=== PATIENT | female | born 1985 | race Hispanic/Latino ===

== ENCOUNTER 2017-05-02 17:31 | Emergency (ER) | payer BC ==
[~2017-05-02] VITALS: Ht 162.6 cm; Wt 88.5 kg
[2017-05-02] MEDS ORDERED: LIDOCAINE HCL 1% LOCAL INJ 20 ML VIAL INJ ONE (18:00)
[2017-05-02] MEDS ORDERED: TETANUS/DIPHTHERIA TOX ADULT 0.5 ML SYR IM ONE (18:00)
[2017-05-02 18:42] VITALS: BP 120/68
== END 2017-05-02 18:50 | disposition home or self-care (01) ==
LOC: FSED 17:31
DX: S61.412A Laceration without foreign body of left hand, initial encounter (principal); W25.XXXA Contact with sharp glass, initial encounter; Y92.008 Other place in unspecified non-institutional (private) residence as the place of occurrence of the external cause
CPT/HCPCS: 12001; 73130; 90471; 90714; 99282; J2001

== ENCOUNTER 2019-12-22 01:25 | Emergency (ER) | payer BC ==
[~2019-12-22] VITALS: Ht 162.6 cm; Wt 120.2 kg
[2019-12-22] MEDS ORDERED: LIDOCAINE HCL 1% LOCAL INJ 20 ML VIAL INJ STA (01:42)
== END 2019-12-22 02:28 | disposition home or self-care (01) ==
LOC: FSED 01:39
DX: S61.210A Laceration without foreign body of right index finger without damage to nail, initial encounter (principal); W26.0XXA Contact with knife, initial encounter; J45.909 Unspecified asthma, uncomplicated
CPT/HCPCS: 99283

== ENCOUNTER 2020-03-28 10:45 | Emergency (ER) | payer BC ==
[~2020-03-28] VITALS: Ht 162.6 cm; Wt 113.4 kg
[2020-03-28] MEDS ORDERED: VENTOLIN HFA18 GM (11:07)
[2020-03-28] MEDS ORDERED: [UNRECOGNIZED DRUG - OTHER] (11:07)
[2020-03-28] MEDS ORDERED: METHYLPREDNISOLONE SOD SUCC 125 MG/2ML VIAL IV ONE (11:15)
[2020-03-28] MEDS ORDERED: ACETAMINOPHEN 325 MG TAB ONE (11:41)
[2020-03-28] MEDS ORDERED: METHYLPREDNISOLONE SOD SUCC 125 MG/2ML VIAL ONE (11:41)
[2020-03-28] MEDS ORDERED: ACETAMINOPHEN 325 MG TAB PO ONE (12:00)
[2020-03-28] MEDS ORDERED: SODIUM CHLORIDE 0.9% 500ML 500 ML ONE (12:43)
[2020-03-28] MEDS ORDERED: LEVOFLOXACIN 750MG/D5W 150ML 150 ML IV ONE (12:43)
[2020-03-28] MEDS ORDERED: ARNUITY ELLIP100 MCG (12:51)
[2020-03-28] MEDS ORDERED: IPRATROPIUM/ALBUTEROL SULFATE 4 GM INH INH SCH (13:00)
[2020-03-28] MEDS ORDERED: LEVOFLOXACIN 750MG/D5W 150ML 150 ML IV SCH (13:00)
[2020-03-28] MEDS ORDERED: SODIUM CHLORIDE 0.9% 500ML 500 ML IV ONE (13:00)
[2020-03-28 14:49] VITALS: BP 108/73
== END 2020-03-28 14:25 | disposition other institution (70) ==
LOC: FSED 11:01
DX: U07.1 COVID-19 (principal); J18.9 Pneumonia, unspecified organism; R09.02 Hypoxemia; R06.02 Shortness of breath; J45.901 Unspecified asthma with (acute) exacerbation
CPT/HCPCS: 71045; 80048; 80076; 81003; 81025; 82553; 83880; 84484; 85025; 85379; 87040; 87400; 93005; 96374; 99284; J2930; J7040